=== PATIENT | female | born 1955 | race Caucasian/White ===

== ENCOUNTER → 2021-10-31 | Outpatient (CLI) | payer MEDICARE ==
--- NOTE | 2021-10-31 14:51 | KCIC ---
MRI of the brain without contrast 10/31/2021 Clinical History: Migraine headaches. Technique: Unenhanced T1-weighted sagittal and axial, T2-weighted axial and coronal and FLAIR, gradie nt echo and diffusion-weighted axial images of the brain were obtained. Findings: There is mild generalized parenchymal atrophy. 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 No acute parenchymal abnormality is seen. No extra-axial fluid collection is noted. There is no MRI evidence of acute ischemia/infarction. Mild mucosal thickening in seen scattered throughout the paranasal sinuses. The patient appears to be post bilateral ethmoidectomy with partial resection of the medial burks of both maxillary sinuses. N ormal flow voids are seen within the major vascular structures surrounding the brain parenchyma. IMPRESSION: No acute parenchymal abnormality is seen. Electronically signed by: Samir Rush MD (10/31/2021 2:48 PM) [id number]
== END ==
LOC: KCIC MRI 12:53
PROVIDERS: ATTEND Psychiatry & Neurology Neurology with Special Qualifications in Child Neurology
DX: G31.9 Degenerative disease of nervous system, unspecified (principal); J34.89 Other specified disorders of nose and nasal sinuses; G43.809 Other migraine, not intractable, without status migrainosus
CPT/HCPCS: 70551